=== PATIENT | female | born 1970 | race Caucasian/White ===

== ENCOUNTER 2020-08-04 01:25 | Emergency (ER) | payer OTHER ==
[2020-08-04 02:17] LABS: BASOPHIL 0.9 % (0-2); EOSINOPHIL 1.4 % (0-5); HCT 36.1 % (37.0-47.0); HGB 10.8 g/dl (12.5-16.0); LYMPHOCYTE 24.3 % (15-48); MCH 24.3 pg (25.0-31.0); MCHC 29.9 g/dL (32.0-36.0); MCV 81.1 fL (78.0-100.0); MONOCYTE 7.5 % (0-12); MPV 11.3 fL (6.0-9.5); NEUTROPHIL 65.7 % (41-80); NRBC 0; PLT 344 K/uL (150-400); RBC 4.45 M/uL (4.20-5.40); RDW 15.8 % (11.5-14.0); WBC 9.4 K/uL (4.0-10.5)
[2020-08-04 02:32] LABS: BUN/CREAT RATIO (CALC) 13.9 RATIO; CREATININE 0.79 mg/dL (0.51-0.95); POTASSIUM 3.8 mmol/L (3.5-5.1)
[2020-08-04] MEDS ORDERED: TEGRETOL200 MG PO (02:54)
== END 2020-08-04 03:05 | disposition home or self-care (01) ==
LOC: FER 01:25
PROVIDERS: Emergency Medicine
DX: G50.0 Trigeminal neuralgia (principal); K11.5 Sialolithiasis; Z86.718 Personal history of other venous thrombosis and embolism
CPT/HCPCS: 36415; 70486; 80048; 85025; 96372; J1170; J2405; J3030